=== PATIENT | female | born 1985 | race Caucasian/White ===

== ENCOUNTER 2018-07-16 19:50 | Emergency (ER) | payer OTHER ==
[2018-07-16 19:55] VITALS: RESP 16
--- NOTE | 2018-07-16 21:33 | ED ---
General Adult HPI - General Chief complaint: Urogenital Stated complaint: Vaginal Bleeding Time Seen by Provider: 07/16/18 20:40 Source: patient, RN notes reviewed Mode of arrival: ambulatory Limitations: no limitations - History of Present Illness Initial comments: 32-year-old female presents to the emergency department for a chief complaint of vaginal bleeding. Patient had an uncomplicated vaginal delivery 14 days ago. Patient states this occurred in [place] and her doctors are through [facility]. Patient states she is currently staying at [facility] because she is coming off of methadone. Patient states the vaginal bleeding lasted for a few hours and she bled through about 3 thin pads. Patient denied any purulent discharge. Patient denied any abdominal pain. She denies any fevers or chills. Patient states she is feeling her normal self. Patient has no other complaints at this time including shortness of breath, chest pain, abdominal pain, nausea or vomiting, headache, or visual changes. - Related Data Allergies Allergy/AdvReac Type Severity Reaction Status Date / Time amoxicillin Allergy Anaphylaxis Verified 07/16/18 19:55 erythromycin base Allergy Anaphylaxis Verified 07/16/18 19:55 Penicillins Allergy Anaphylaxis Verified 07/16/18 19:55 Review of Systems ROS Statement: Those systems with pertinent positive or pertinent negative responses have been documented in the HPI. ROS Other: All systems not noted in ROS Statement are negative. Past Medical History Past Medical History: No Reported History History of Any Multi-Drug Resistant Organisms: None Reported Past Surgical History: No Surgical Hx Reported Past Psychological History: No Psychological Hx Reported Smoking Status: Current every day smoker Past Alcohol Use History: None Reported Past Drug Use History: Heroin General Exam Limitations: no limitations General appearance: alert, in no apparent distress Head exam: Present: atraumatic, normocephalic, normal inspection Eye exam: Present: normal appearance, PERRL, EOMI. Absent: scleral icterus, conjunctival injection, periorbital swelling ENT exam: Present: normal exam, mucous membranes moist Neck exam: Present: normal inspection, full ROM. Absent: tenderness, meningismus, lymphadenopathy Respiratory exam: Present: normal lung sounds bilaterally. Absent: respiratory distress, wheezes, rales, rhonchi, stridor Cardiovascular Exam: Present: regular rate GI/Abdominal exam: Present: soft, normal bowel sounds. Absent: distended, tenderness (No abdominal or pelvic tenderness), guarding, rebound, rigid External exam: Present: other (deferred) Neurological exam: Present: alert, oriented X3, CN II-XII intact Psychiatric exam: Present: normal affect, normal mood Course Vital Signs 07/16/18 07/16/18 19:52 21:38 Temperature 98.2 F 98 F Pulse Rate 70 63 Respiratory 16 16 Rate Blood Pressure 134/88 134/86 O2 Sat by Pulse 98 99 Oximetry Medical Decision Making - Medical Decision Making 32-year-old female status post uncomplicated vaginal delivery 14 days ago presents to the emergency department for a chief complaint of vaginal bleeding 3 hours. Patient states she was at [facility] when she had bleeding for 3 hours and soaked through 3 thin pads. Patient states bleeding has completely stopped at this time. Before examining patient patient states she feels better and wants to go home. She did allow me to palpate her abdomen which was nontender. I did recommend pelvic exam, labs, and ultrasound which patient refused. I did discuss risk of retained products including bleeding and infection and at this time patient would rather return if symptoms worsen or continue for exam. Vitals are stable with a temperature of 98, pulse rate is 63 , respiratory rate of 16, and blood pressure 134/86. At this time as patient does not want exam or blood work done she will be discharged home. However I did discuss returning immediately if she begins to develop a fever, pain, or increased vaginal bleeding. I did refer her to an TELEVISION AND RADIO REPAIRER in this area as well. Disposition Clinical Impression: Vaginal bleeding Disposition: HOME SELF-CARE Condition: Good Instructions: Dysfunctional Uterine Bleeding (ED) Additional Instructions: Please follow-up with your TELEVISION AND RADIO REPAIRER in 1-2 days. Please return to the emergency department if you have any worsening symptoms including continued bleeding, discharge, fevers, or abdominal pain Is patient prescribed a controlled substance at d/c from ED?: No Referrals: Kailey Crawford DO [Doctor of Osteopathic Medicine] - 1-2 days Time of Disposition: 21:32
[2018-07-16 21:39] VITALS: BP 134/86; PULSE 63; TEMP 98
== END 2018-07-16 21:39 | disposition home or self-care (01) ==
LOC: EC 19:50
DX: O72.1 Other immediate postpartum hemorrhage (principal); O99.335 Smoking (tobacco) complicating the puerperium; F17.200 Nicotine dependence, unspecified, uncomplicated; Z88.0 Allergy status to penicillin; Z88.1 Allergy status to other antibiotic agents; Z53.29 Procedure and treatment not carried out because of patient's decision for other reasons
CPT/HCPCS: 99283